=== PATIENT | male | born 1975 | race Caucasian/White ===

== ENCOUNTER 2019-07-25 12:00 | Outpatient (CLI) | payer BC, SELFPAY | END 2019-07-25 12:01 | disposition home or self-care (01) | LOC: SLEEP 07-29 12:14 | PROVIDERS: Family Provider Family Medicine; Visit Provider Family Medicine | DX: G47.33 Obstructive sleep apnea (adult) (pediatric) (principal) | CPT/HCPCS: G0399 ==

== ENCOUNTER 2019-11-18 12:31 | Outpatient (CLI) | payer BC, SELFPAY | END 2019-11-18 12:32 | disposition home or self-care (01) | LOC: LAB 12:34 | PROVIDERS: Family Provider Family Medicine; Visit Provider Family Medicine | DX: R19.7 Diarrhea, unspecified (principal) | CPT/HCPCS: 82274; 83993; 87506 ==

== ENCOUNTER 2020-11-13 08:24 | Outpatient (CLI) | payer BC, OTHER, MEDICAID, SELFPAY ==
--- NOTE | 2020-11-13 08:33 | FL_ITS ---
WS: [id number] Upper GI series, 11/13/2020 Clinical Data: DYSPHAGIA Comparison: None. Fluoroscopy time: 1.1 minutes. Findings: The patient swallowed the barium and it flowed normally through the hypopharynx. No polyp, mass or ob struction was seen. The barium entered the esophagus and there was normal motility. There was a small hiatal hernia with minimal gastroesophageal reflux. No polyp, mass, erosion, fistula or ulcer was se en. The stomach is small consistent with patient's history of gastric reduction surgery. The stomach remnant showed no extravasation, polyp, mass or ulcer. The duodenal bulb filled normally with no ulce ration. The proximal duodenum was normal. FL/FL upper GI series [id number] Impression: 1. Small hiatal hernia with minimal gastroesophageal reflux. 2. Intact reduced stomach with no evidence of any fistula or extravasation. 3. Normal duodenal bulb.
== END 2020-11-13 08:25 | disposition home or self-care (01) ==
PROVIDERS: Family Provider Family Medicine; Visit Provider Family Medicine
DX: R13.10 Dysphagia, unspecified (principal)
CPT/HCPCS: 74240

== ENCOUNTER 2022-04-23 01:02 | Emergency (ER) | payer MEDICAID, SELFPAY ==
[2022-04-23 01:16] VITALS: BP 151/108; PULSE 79; RESP 18; TEMP 36.7; O2SAT 98; BMI 36.9
--- NOTE | 2022-04-23 02:11 | ED_ITS ---
HPI - Extremity Problem General: Chief complaint: Extremity Problem,Nontraumatic Stated complaint: Gout\pain Time Seen by Provider: 04/23/22 01:46 History of Present Illness: Patient is a 46-year-old male comes to the ED with right foot pain. Patient has a history of gout and takes allopurinol daily. Symptoms started today. He states that he is having another gout flareup. Symptoms are just like his past gout flareups. He has pain in his right great toe along with some swelling. Pain is rated 9 out of 10. Any pressure on right great toe causes worsening pain. Denies any injury or trauma to cause pain. Associated symptoms: Deny chest pain, fever(s) or rash Review of Systems Const: Denies: fever(s), chills or fatigue Eyes: Denies: change in vision or eye discomfort ENMT: Denies: throat pain, odynophagia, nasal discharge or nasal congestion Card: Denies: chest pain, palpitations, edema, swelling of feet/ankles, dyspnea on exertion or orthopnea Resp: Denies: dyspnea, productive cough or non-productive cough GI: Denies: abdominal pain, nausea, vomiting, diarrhea, constipation or hematochezia : Denies: flank pain, difficulty urinating, dysuria or hematuria Musc: Reports: extremity pain (right great toe) and extremity swelling (right great toe); Denies: neck pain or back pain Skin/Breast: Denies: rash or new lesions Neuro: Denies: headache(s), numbness in extremities or weakness in extremities PFS ED PFSH: Medical History Gout No pertinent family history Family History Sister Cancer Grandmother Cancer Social History Current gender identity: Male Physical Exam Const: COMMON NORMALS: patient oriented x3, healthy appearing and alert GENERAL APPEARANCE: cooperative HENMT: COMMON NORMALS: normocephalic HEAD & SCALP: normocephalic MOUTH: Normal oral and palatal mucosa present THROAT: posterior oropharynx normal and uvula midline Neck/C-Spine: COMMON NORMALS: supple GENERAL: Yes normal visual inspection Resp: COMMON NORMALS: normal respiratory effort, No retractions, No use of accessory muscles and clear to auscultation bilaterally AUSCULTATION: clear to auscultation bilaterally Cardio: COMMON NORMALS: regular rate, regular rhythm, S1 normal heart sound present, S2 normal heart sound present, No gallops present (Cardio), No clicks present (Cardio), No murmurs present (Cardio) and Peripheral pulses 2+ throughout RATE: regular rate RHYTHM: regular rhythm HEART SOUNDS: S1 normal heart sound present and S2 normal heart sound present PERIPHERAL PULSES: Peripheral pulses 2+ throughout GI: COMMON NORMALS: Normal to inspection, nondistended, normoactive bowel sounds present, Soft to palpation, non-tender and no masses PALPATION: Yes Soft to palpation : COMMON NORMALS: Yes no CVA tenderness BLADDER/KIDNEY EXAM: Yes no CVA tenderness Back/Pelvis: COMMON NORMALS: no CVA tenderness Extremity: NARRATIVE EXTREMITY EXAM: Right foot?great toe swelling, erythema and warmth noted Limited range of motion in toes due to pain. Findings suggestive of gout. Neuro: COMMON NORMALS: patient oriented x3 SENSORIUM/ORIENTATION: Yes alert GAIT: Yes Normal gait present Skin: GENERAL SKIN EXAM: dry skin Course Vital Signs: Vital signs: Vital Signs Temperature 98.1 F 04/23/22 01:16 Pulse Rate 79 04/23/22 01:16 Respiratory Rate 18 04/23/22 01:16 Blood Pressure 151/108 04/23/22 01:16 Pulse Oximetry 98 04/23/22 01:16 Oxygen Delivery Me thod 04/23/22 01:16 MDM - Extremity (Nontraumatic) Medical Decision Making Patient is a 46-year-old male comes to the ED with right toe pain. He has a history of gout and says this pain is similar to his past gout attacks. Denies any injury or trauma to cause pain. Exam shows erythema, warmth and some tenderness left great toe. Patient diagnosed with gout. Patient was given dose of colchicine, Toradol and Solu-Medrol here in the ED. He was discharged home with 4 tablets of colchicine and told to take 1 every hour for the next 4 hours. Follow-up with PCP within the next week for reevaluation. Return ED precautions given. Patient understood and agreed with plan. Discharge Plan Discharge Patient Disposition: Home Clinical Impression: Gout attack Qualifiers: Gout site: toe Gout etiology: unspecified cause Laterality: right Qualified Code(s): M10.9 - Gout, unspecified Condition: Stable Prescriptions: New prednisone 20 mg tablet 20 mg PO BID 5 Days Qty: 10 0RF No Action bupropion HCl [Wellbutrin XL] 300 mg tablet extended release 24 hr 300 mg PO QAM allopurinol 300 mg tablet 150 mg PO DAILY amlodipine 5 mg tablet 5 mg PO DAILY sildenafil [Viagra] 100 mg tablet 100 mg PO DAILY PRN Rx Instructions: administer 30 minutes to 4 hours before activity metronidazole 500 mg tablet 500 mg PO BID Discharge Orders: Discharge ED (Routine); Ordered 04/23/22 Ordered By: Nicolas Saenz Discharge Diet: Regular Discharge Activity: Increase activity as tolerated Patient Instructions: Gout (ED) Activity Restrictions/Additional Instructions: Follow-up with medical provider as directed in the next 5 to 7 days reevaluation. Sending you home with 4 colchicine tablets you can take 1 every hour. take medications as prescribed. Take [id number] ibuprofen to help with pain as well. Return to the ER or your medical provider if condition worsens. Please read and understand discharge instructions. Thank you for choosing [facility] for your healthcare needs today. Please realize this is an emergency room and that we are providing you with a medical screening exam and this may not be complete and all inclusive of all the testing and or work up that you may need to determine your ailment or severity of your illness. It is very important that you follow up as instructed or that you return to the Emergency Department should you have concerns or if your condi tion changes or worsens in any way. Coding Level of Care Code ED Clinical Documentation Consultant for David Romano Exam Comprehensive
[2022-04-23] MEDS: ketorolac 60 mg/2 mL INJ IM (02:23)
[2022-04-23] MEDS: colchicine 0.6 mg Tablet 1.2 MG PO (02:23)
[2022-04-23] MEDS: colchicine 0.6 mg Tablet 2.4 MG PO (02:41)
== END 2022-04-23 02:42 | disposition home or self-care (01) ==
PROVIDERS: Emergency Provider Physician Assistant
DX: M10.9 Gout, unspecified (principal)
CPT/HCPCS: 96372; 99284; J1885; J2930

== ENCOUNTER 2024-03-17 19:32 | Emergency (ER) | payer SELFPAY ==
[2024-03-17 19:39] VITALS: BP 188/107; PULSE 79; RESP 17; TEMP 37.1; O2SAT 95; BMI 39.5
--- NOTE | 2024-03-17 19:49 | ED_ITS ---
HPI - Wound/Laceration General: Chief Complaint: Wound/Laceration Stated Complaint: Left Eye Cut Time Seen by Provider: 03/17/24 19:46 History of Present Illness: 48-year-old male patient comes in today with injury to the left periorbital region. 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 Patient sustained a laceration to the left upper eyelid. Patient denied any loss of consciousness. Patient does report severe headache. Related Data Home Medications Medication Instructions Recorded Confirmed allopurinol 300 mg tablet 150 mg PO DAILY 12/21/20 12/21/20 amlodipine 5 mg tablet 5 mg PO DAILY 12/21/20 12/21/20 bupropion HCl 300 mg 24 hr tablet, 300 mg PO QAM 12/21/20 12/21/20 extended release (Wellbutrin XL) metronidazole 500 mg tablet 500 mg PO BID 12/21/20 12/21/20 sildenafil 100 mg tablet (Viagra) 100 mg PO DAILY PRN 12/21/20 12/21/20 Allergies Allergy/AdvReac Type Severity Reaction Status Date / Time Sulfa (Sulfonamide Allergy Intermediate unknown Verified 03/17/24 19:43 Antibiotics) Review of Systems General: Reports: 10 or more systems reviewed and unremarkable except in HPI and below Neuro: Reports: headache(s) PFSH ED PFSH: Medical History Gout No pertinent family history Family History Sister Cancer Grandmother Cancer Social History Current gender identity: Male Physical Exam Const: COMMON NORMALS: patient oriented x3 HENMT: COMMON NORMALS: atraumatic HEAD & SCALP: atraumatic FACE & SINUS: other (1 cm superficial laceration left eyelid) MOUTH: Normal oral and palatal mucosa present Eye: EYELID: eyelid abnormality (Left upper eyelid 1 cm laceration well- approximated) Neck/C-Spine: COMMON NORMALS: full ROM and no meningeal signs Resp: COMMON NORMALS: normal respiratory effort and clear to auscultation bilaterally AUSCULTATION: clear to auscultation bilaterally Cardio: COMMON NORMALS: regular rate RATE: regular rate Back/Pelvis: COMMON NORMALS: thoracic and lumbar spine normal to inspection Extremity: COMMON NORMALS: normal to inspection Neuro: COMMON NORMALS: patient oriented x3 MENINGEAL SIGNS: Yes no meningeal signs Skin: COMMON NORMALS: turgor normal GENERAL SKIN EXAM: turgor normal Procedures Laceration Laceration 1: Site: face Side (If applicable): left Size (cm): 1 Description: linear Depth: simple, single layer Pre-repair: wound explored and irrigated extensively Skin layer closed with: other (Skin adhesive) Course Vital Signs: Vital signs: Vital Signs Temperature 98.7 F 03/17/24 19:39 Pulse Rate 67 03/17/24 21:34 Respiratory Rate 20 H 03/17/24 20:58 Blood Pressure 158/107 03/17/24 21:34 Pulse Oximetry 95 03/17/24 21:34 Oxygen Delivery Me thod Room Air 03/17/24 21:34 MDM - Wound/Laceration Medical Decision Making 48-year-old male patient comes in today with injury to the left eyelid. Patient was struck by a gate to the left eye area. Patient reports pain to the eyelid and complaints of a headache. Patient appears nontoxic. No focal neurodeficits are noted. Superficial lacerations noted to the left upper eyelid. Differential diagnosis includes not limited to fracture, intercranial bleeding, laceration. Wound was repaired with skin adhesive. CT of the head noted no intracranial bleeding or fracture. Reviewed exam with patient with recommendation for treatment and follow-up. Patient reported understanding. Lab Data Radiology Impressions Head CT 03/17/24 19:56 IMPRESSION: No acute intracranial abnormality. All radiology interpretation(s) finalized by discharge Discharge Plan Discharge Patient Disposition: Home Clinical Impression: Laceration of eyelid without involvement of lid margin Head injury Qualifiers: Encounter type: initial encounter Qualified Code(s): S09.90XA - Unspecified injury of head, initial encounter Condition: Stable Prescriptions: No Action bupropion HCl [Wellbutrin XL] 300 mg tablet extended release 24 hr 300 mg PO QAM allopurinol 300 mg tablet 150 mg PO DAILY amlodipine 5 mg tablet 5 mg PO DAILY sildenafil [Viagra] 100 mg tablet 100 mg PO DAILY PRN Rx Instructions: administer 30 minutes to 4 hours before activity metronidazole 500 mg tablet 500 mg PO BID Discharge Orders: Discharge ED (Routine); Ordered 03/17/24 Ordered By: Patricio Brink Referrals: Joe Birmingham MD [Primary Care Provider] - Discharge Diet: Usual diet Patient Instructions: Laceration (ED) Activity Restrictions/Additional Instructions: Keep wound clean and dry as much as possible. If it becomes wet dry thoroughly. Avoid strong rubbing of the wound which could cause the adhesive to break open. Monitor site for signs of infection such as redness swelling and fever. Follow-up with primary care as needed. Return to ED for new concerns. Coding Level of Care Code ED Plastic Block Boiler Reliner for David Romano
--- NOTE | 2024-03-17 19:56 | CTR_ITS ---
PROCEDURE INFORMATION: Exam: CT Head Without Contrast Exam date and time: 03/17/2024 8:25 PM Age: 48 years old Clinical indication: Injury or trauma; Blunt trauma (contusions or hematomas); Patient HX: Patient headbutted by cattle. Small lac to left eyelid. C/O frontal [place]. ; Additional info: Head injury TECHNIQUE: Imaging protocol: Computed tomography of the head without contrast. Radiation optimization: All CT scans at this facility use at least one of these dose optimization techniques: automated exposure control; mA and/or kV adjustment per patient size (includes targeted exams where dose is matched to clinical indication); or iterative reconstruction. COMPARISON: No relevant prior studies available. RADIATION DOSE METRICS: Total DLP (mGy-cm): 1142.28 FINDINGS: Brain: Normal. No hemorrhage. Unremarkable white matter. No mass effect. Cerebral ventricles: No ventriculomegaly. Paranasal sinuses: Visualized sinuses are unremarkable. No fluid levels. Mastoid air cells: Visualized mastoid air cells are well aerated. Bones: Unremarkable. No acute fracture. Soft tissues: Unremarkable. CT/CT head wo con* [id number] IMPRESSION: No acute intracranial abnormality.
[2024-03-17 20:58] VITALS: BP 173/104; PULSE 69; RESP 20; O2SAT 95
[2024-03-17 21:34] VITALS: BP 158/107; PULSE 67; O2SAT 95
[2024-03-17 21:48] VITALS: BP 158/107; PULSE 67; O2SAT 98
== END 2024-03-17 21:49 | disposition home or self-care (01) ==
PROVIDERS: Emergency Provider Nurse Practitioner Family; PCP Family Medicine
DX: S01.112A Laceration without foreign body of left eyelid and periocular area, initial encounter (principal); S09.90XA Unspecified injury of head, initial encounter; W20.8XXA Other cause of strike by thrown, projected or falling object, initial encounter
CPT/HCPCS: 12011; 70450; 99284